=== PATIENT | male | born 1995 | race African-American/Black ===

== ENCOUNTER 2018-06-27 00:34 | Emergency (ER) | payer OTHER ==
[2018-06-27 01:05] VITALS: BP 119/66
[2018-06-27] MEDS ORDERED: CIPROFLOXACIN HCL/DEXAMETH OTIC DROP 7.5 ML AD ONE (02:16)
--- NOTE | 2018-06-27 02:18 | ER Document Report ---
HPI - HPI Time Seen by Provider: 06/27/18 02:10 Pain Level: 3 Context: Patient is a 22-year-old male that comes to the emergency department for chief complaint of foreign body in the right ear. He states he placed toilet paper in the ear intentionally to block out the loud TV in the room, he states afterwards he was unable to get it out. He states that someone told him to pour water in it but this did not help. He denies any pain, nausea, dizziness. He denies any other complaints. He is an inmate in the custody of law enforcement at this time. Past Medical History - General Information source: Patient - Social History Smoking Status: Never Smoker Drug Abuse: None Lives with: Other - Incarcerated Family History: Reviewed & Not Pertinent - Medical History Medical History: Negative Surgical Hx: Negative - Immunizations Immunizations up to date: Yes Hx Diphtheria, Pertussis, Tetanus Vaccination: Yes Vertical Provider Document - CONSTITUTIONAL General Appearance: WD/WN, No Apparent Distress - INFECTION CONTROL TRAVEL OUTSIDE OF THE [place] IN LAST 30 DAYS: No - HEENT HEENT: Atraumatic, Normocephalic, PERRLA. negative: Conjuctival Injection, Dental Injury, Normal ENT Exam - Tissue paper in the right ear canal. No bleeding, no tenderness to the tragus, ear, or mastoid. Unremarkable ENT exam otherwise., Pharyngeal Exudate, Pharyngeal Tenderness, Pharyngeal Erythema, Tympanic Membrane Red, Tympanic Membrane Bulging - NECK Neck: Normal Inspection - RESPIRATORY Respiratory: Breath Sounds Normal, No Respiratory Distress - CARDIOVASCULAR Cardiovascular: Regular Rate, Regular Rhythm - GI/ABDOMEN Gastrointestinal: Abdomen Soft, Abdomen Non-Tender - BACK Back: Normal Inspection - NEURO Level of Consciousness: Awake, Alert, Appropriate - DERM Integumentary: Warm, Dry, No Rash Course - Re-evaluation Re-evalutation: The toilet paper was easily removed from the right ear canal using alligator forceps, this came apart slightly but was easily removed in 3 pieces. Inspection was unremarkable except for possible tiny fragments of white toilet paper remaining in the deeper canal although this was not definite. Because of the possible tiny amount of retained wet foreign body decision was made after discussion with patient to place him on Ciprodex, he was provided with this from here, he will be on this at home to avoid infection. Remaining fragment should come out in the bath I discussed with patient. Discussed expectations and return precautions. Patient states satisfaction and agreement. - Vital Signs Vital signs: Temp Pulse Resp BP Pulse Ox 98.1 F 56 L 18 119/66 99 06/27/18 01:04 06/27/18 01:04 06/27/18 01:04 06/27/18 01:04 06/27/18 01:04 Discharge - Discharge Clinical Impression: Foreign body in right ear Qualifiers: Encounter type: initial encounter Qualified Code(s): T16.1XXA - Foreign body in right ear, initial encounter Condition: Stable Disposition: HOME, SELF-CARE Additional Instructions: The foreign body has been removed but there is no damage, however there are tiny fragments of wet paper that remained in the your deeper ear canal. These will come out with time in the shower, however to avoid infection from these I recommend the topical eardrops provided, 4 drops, twice a day, times 7 days. Follow-up with primary care. Return for any concerning symptoms including swelling of the ear, pain of the ear, bleeding, discharge, or any other concerning symptoms. Referrals: LOCAL[facility],NO [Primary Care Provider] - Follow up as needed
[2018-06-27] MEDS ORDERED: CIPROFLOXACIN HCL/DEXAMETH OTIC DROP 7.5 ML ONE (02:28)
== END 2018-06-27 02:40 | disposition home or self-care (01) ==
LOC: ER 00:34
DX: T16.1XXA Foreign body in right ear, initial encounter (principal); X58.XXXA Exposure to other specified factors, initial encounter
CPT/HCPCS: 99283